=== PATIENT | female | born 1990 | race Two or more races ===

== ENCOUNTER 2025-06-21 18:51 | Emergency (ER) | payer BC, OTHER ==
[~2025-06-21] VITALS: Ht 152.4 cm; Wt 59.0 kg
[2025-06-21 20:29] LABS: PLATELET COUNT (AUTO) 410 K/uL (150-450); RED BLOOD CELL COUNT(AUTO) 5.07 MIL/uL (4.0-5.2); RED CELL DISTRIBUTION WIDTH 14.3 % (11.5-15.0); WHITE BLOOD COUNT (AUTO) 8.6 K/uL (4.3-11.0)
[2025-06-21] MEDS: MAG HYDROX/AL HYDROX/SIMETH 30 ML UDC PO ONE (20:30)
[2025-06-21] MEDS: LIDOCAINE VISCOUS 2% UD 15 ML UDC MM ONE (20:30)
[2025-06-21 20:48] LABS: CALCIUM, SERUM 11.2 mg/dL (8.5-10.1); CREATININE 1.0 mg/dL (0.6-1.3); SODIUM SERUM 140.0 mmol/L (136-145); UREA NITROGEN, BLOOD 13.0 mg/dL (7-18)
[2025-06-21 20:53] LABS: ASPARTATE AMINOTRANSFERASE 24.0 U/L (15-37); TOTAL PROTEIN, SERUM 8.8 g/dL (6.4-8.2)
[2025-06-21] MEDS: IV NS 0.9% 1,000 ML BAG IV ONE (20:53)
[2025-06-21] MEDS ORDERED: MAG HYDROX/AL HYDROX/SIMETH 30 ML UDC ONE (20:54)
[2025-06-21] MEDS ORDERED: LIDOCAINE VISCOUS 2% UD 15 ML UDC ONE (20:54)
[2025-06-21] MEDS ORDERED: FAMOTIDINE/PF INJ 20 MG/2 ML VIAL IV ONE (20:55)
[2025-06-21] MEDS: FAMOTIDINE/PF INJ 20 MG/2 ML VIAL IV ONE (21:02)
[2025-06-21] MEDS ORDERED: MAG355OR18 PO (21:36)
[2025-06-21] MEDS ORDERED: OMEP20CA15 PO (21:36)
[2025-06-21] MEDS ORDERED: FAMO20TA8 PO (21:36)
[2025-06-21 22:53] LABS: APPEARANCE,URINE CLEAR (CLEAR); BLOOD, URINE NEGATIVE Ery/uL (NEGATIVE); LEUKOCYTE ESTERASE ,URINE 1+ (NEGATIVE); NITRITE, URINE NEGATIVE (NEGATIVE); UGLUCOSE NEGATIVE (NEGATIVE)
[2025-06-21 23:02] LABS: PREGNANCY TEST URINE QUAL NEGATIVE (NEGATIVE)
[2025-06-21 23:13] LABS: ADD URINE CULTURE YES; SQUAMOUS EPITHELIAL CELL,UR Few /HPF (None Seen)
[2025-06-22 00:56] VITALS: BP 132/84; TEMP 98; O2SAT 98
== END 2025-06-22 00:57 | disposition home or self-care (01) ==
LOC: ER 18:59
DX: K29.70 Gastritis, unspecified, without bleeding (principal); F84.0 Autistic disorder; F41.9 Anxiety disorder, unspecified; Z79.899 Other long term (current) drug therapy; Z86.19 Personal history of other infectious and parasitic diseases; Z88.0 Allergy status to penicillin
CPT/HCPCS: 99285; 96374; 76700; 85025; 80048; 87086; 83690; 80076; 84703; 81001; 36415; J1308